=== PATIENT | male | born 1990 | race Caucasian/White ===

== ENCOUNTER 2020-08-03 20:24 | Emergency (ER) | payer OTHER ==
[~2020-08-03] VITALS: Ht 165.1 cm; Wt 80.6 kg
[2020-08-03 21:00] VITALS: BP 148/98
--- NOTE | 2020-08-03 21:44 | PHYS DOC ---
Past History Past Medical History: No Pertinent History (CYRIL JASMINE APRN) Past Surgical History: Other Additional Past Surgical Histo: wisdom teeth extraction (CYRIL JASMINE APRN) Alcohol Use: Occasionally (CYRIL JASMINE APRN) General Adult EDM: Chief Complaint: MECHANICAL FALL HPI: HPI: Patient is a 29-year-old male who presents to the emergency room with complaints of neck pain. Patient states he was in the shower this evening when he slipped and fell hitting the back of his neck on the faucet. He denies any loss of consciousness. Patient denies any head injury, nausea, vomiting, vision changes, weakness, or back pain. He denies any headache. Patient states that he has noticed that his fingers feel tingly bilaterally since injury but denies any decreased sensation he currently rates the pain a 3 out of 10 on the pain scale, he reports that the pain is worse if the area is palpated. He denies any other complaints. (CYRIL JASMINE APRN) Review of Systems: Review of Systems: Complete ROS is negative unless otherwise noted in HPI. (CYRIL JASMINE APRN) Allergies: Allergies: Allergies Coded Allergies Type Severity Reaction Last Updated Verified No Known Drug Allergies 08/03/20 No (CYRIL JASMINE APRN) Physical Exam: PE: See Above Constitutional: Well developed, well nourished, no acute distress, non-toxic appearance. [] HENT: Normocephalic, atraumatic, bilateral external ears normal, nose normal. [] Eyes: PERRLA, EOMI, conjunctiva normal, no discharge. [] Neck: Lower C-spine tenderness to palpation, without step-off or crepitus, patient placed in c-collar by myself. Cardiovascular:Heart rate regular rhythm Lungs & Thorax: Respirations even and unlabored, no retractions, no respiratory distress Skin: Warm, dry, no rash; bruising to posterior neck present, no abrasions, no bleeding, Back: No thoracic or lumbar tenderness to palpation, no step-off, no crepitus, no obvious deformity. Extremities: No cyanosis, no clubbing, ROM intact, no edema. [] Neurologic: Alert and oriented X 3, normal motor function, normal sensory function, no focal deficits noted. [] Psychologic: Affect normal, judgement normal, mood normal. [] (CYRIL JASMINE APRN) Current Patient Data: Vital Signs: Vital Signs Date Time Temp Pulse Resp B/P (MAP) Pulse Ox O2 Delivery O2 Flow Rate FiO2 08/03/20 21:00 98.8 84 16 148/98 (115) 96 Room Air (CYRIL JASMINE APRN) EKG: EKG: [] (CYRIL JASMINE APRN) Radiology/Procedures: Radiology/Procedures: PROCEDURE: CT CERVICAL SPINE WO CONTRAST Exam: CT cervical spine without contrast INDICATION: Fall in bathtub, neck pain TECHNIQUE: Sequential axial images through the cervical spine obtained without IV contrast. Sagittal and coronal reformatted images were reconstructed from the axial data and reviewed. Comparisons: None FINDINGS: Visualized intracranial structures are unremarkable. There is straightening of the cervical spine which may be positional. Vertebral body heights are well-maintained. Fracture to the cervical spine is not identified. No significant spondylotic change in the cervical spine. Visualized paraspinal soft tissues are unremarkable. IMPRESSION: Negative CT C-spine for acute fracture. Exposure: One or more of the following in the visualized dose reduction techniques were utilized for this examination: 1. Automated exposure control 2. Adjustment of the MA and/or KV according to patient size 3. Use of iterative of reconstructive technique [] (CYRIL JASMINE APRN) Heart Score: Risk Factors: Risk Factors: DM, Current or recent (<one month) smoker, HTN, HLP, family history of CAD, obesity. Risk Scores: Score 0 - 3: 2.5% MACE over next 6 weeks - Discharge Home Score 4 - 6: 20.3% MACE over next 6 weeks - Admit for Clinical Observation Score 7 - 10: 72.7% MACE over next 6 weeks - Early Invasive Strategies (CYRIL JASMINE APRN) Course & Med Decision Making: Course & Med Decision Making Pertinent Labs and Imaging studies reviewed. (See chart for details) 29-year-old male presents emergency room for evaluation of neck pain after a fall in his shower. CT of the patient's neck was negative for any acute fractures. Prescription was written for Flexeril and naproxen. Encouraged the patient to follow-up with his primary care doctor for repeat evaluation next week. Return to the ER if symptoms worsen. Patient verbalized an understanding of home care, medications, follow-up, and return to ED instructions and was in agreement with the plan of care. [] (CYRIL JASMINE APRN) Yani Disclaimer: Yani Disclaimer: This electronic medical record was generated, in whole or in part, using a voice recognition dictation system. (CYRIL JASMINE APRN) Attending Co-Sign The patient was seen and interviewed as well as examined at the bedside. The chart was reviewed. The case was discussed. Agree with the plan of care. (EFRAÍN ALDANA DO) Departure Departure: Impression: Primary Impression: Neck contusion Qualified Codes: S10.93XA - Contusion of unspecified part of neck, initial encounter Additional Impressions: Fall in shower Neck pain, acute Disposition: 01 DC HOME SELF CARE/HOMELESS Condition: STABLE Referrals: PCP,UNKNOWN (PCP) Patient Instructions: Soft Tissue Injury of the Neck, [id number] Additional Instructions: Fill the prescription(s) and use as directed. Apply ice sore areas as needed for comfort for the first 48 hours, then apply heat or ice as needed for comfort. Activity as tolerated. Follow up with your primary care doctor next week if symptoms persist, return to the ER if symptoms worsen. Scripts Naproxen (NAPROXEN) 500 Mg Tablet 1 TAB PO BID for pain for 10 Days, #20 TAB 0 Refills Prov: CYRIL JASMINE APRN 08/03/20 Cyclobenzaprine Hcl (CYCLOBENZAPRINE HCL) 10 Mg Tablet 1 TAB PO TID PRN for PAIN for 10 Days, #30 TAB 0 Refills Prov: CYRIL JASMINE APRN 08/03/20 CYRIL JASMINE APRN Aug 03, 2020 21:44 EFRAÍN ALDANA DO Aug 03, 2020 23:16
--- NOTE | 2020-08-03 22:17 | RAD ---
Exam: CT cervical spine without contrast INDICATION: Fall in bathtub, neck pain TECHNIQUE: Sequential axial images through the cervical spine obtained without IV contrast. Sagittal and coronal reformatted images were reconstructed from the axial data and reviewed. Comparisons: None FINDINGS: Visualized intracranial structures are unremarkable. There is straightening of the cervical spine which may be positional. Vertebral body heights are well-maintained. Fracture to the cervical spine is not identified. No significant spondylotic change in the cervical spine. Visualized paraspinal soft tissues are unremarkable. IMPRESSION: Negative CT C-spine for acute fracture. Exposure: One or more of the following in the visualized dose reduction techniques were utilized for this examination: 1. Automated exposure control 2. Adjustment of the MA and/or KV according to patient size 3. Use of iterative of reconstructive technique Electronically signed by: Yao Ireland MD (08/03/2020 10:14 PM) BERE
[2020-08-03] MEDS ORDERED: CYCL-331 PO (22:25)
[2020-08-03] MEDS ORDERED: NAPR-514 PO (22:25)
== END 2020-08-03 22:35 | disposition home or self-care (01) ==
LOC: ER 20:24
DX: S10.93XA Contusion of unspecified part of neck, initial encounter (principal); W18.2XXA Fall in (into) shower or empty bathtub, initial encounter; Y93.89 Activity, other specified; Y92.89 Other specified places as the place of occurrence of the external cause; Y99.8 Other external cause status
CPT/HCPCS: 72125; 99284